=== PATIENT | female | born 1955 | race Caucasian/White ===

== ENCOUNTER 2017-06-04 14:49 | Emergency (ER) | payer OTHER ==
[~2017-06-04] VITALS: Ht 157.5 cm; Wt 68.5 kg
[2017-06-04 15:14] VITALS: BP 126/71
--- NOTE | 2017-06-04 15:21 | NUR ---
INFLUENZA SWAB COLLECTED, SENT TO LAB. EKG DONE IN TRIAGE, SHOWN TO DR. GARZA.
--- NOTE | 2017-06-04 17:12 | NUR ---
Patient to [facility]. RN evaluating patient.
--- NOTE | 2017-06-04 17:15 | NUR ---
61F BIB FAMILY C/O FLU S/S; COUGH, HEADAHCE, VOMITING, BODY ACHES X YESTERDAY; PT C/O MID-CHEST PAIN, RADIATES TO LEFT CHEST, ACHING, 8/10 AT THIS TIME; PT C/O VOMMITTING, BUT STATES NO DIARRHEA AT THIS TIME; ABDOMEN SOFT, NON-TENDER, ACTIVE BOWEL SOUNDS X 4 QUADRANTS; PT C/O NON-PRODUCTIVE COUGH, BL LUNG SOUNDS CLEAR, RR EVEN/UNLABORED, SKIN IS WARM/DRY/INTACT AT THIS TIME; PT RESTING IN [facility]4, POSITIONED FOR COMFORT; ER MD MADE AWARE OF STATUS. WILL CONTINUE TO MONITOR.
--- NOTE | 2017-06-04 17:40 | NUR ---
ER MD DR. GARZA EVALUATING PT AT OF.
[2017-06-04] MEDS ORDERED: KETOROLAC 30 MG/ML VIAL IM ONE (17:45)
[2017-06-04] MEDS ORDERED: ONDANSETRON 4 MG ODT PO ONE (17:45)
[2017-06-04] MEDS ORDERED: ACETAMIN/CODEINE 120/12MG-5ML 5 ML UDC PO ONE (17:45)
--- NOTE | 2017-06-04 18:19 | NUR ---
URINE COLLECTED AND LAB CALLED
[2017-06-04 19:19] VITALS: BP 126/71
--- NOTE | 2017-06-04 19:20 | NUR ---
Patient discharged with v/s stable. Written and verbal after care instructions given and explained. Patient verbalized understanding. Ambulatory with steady gait. All questions addressed prior to discharge. Advised to follow up with PMD.
== END 2017-06-04 18:30 | disposition home or self-care (01) ==
LOC: MED 14:49
DX: J20.9 Acute bronchitis, unspecified (principal)
CPT/HCPCS: 36415; 71045; 87804; 93005; 96372; 99285; J1885; S0119

== ENCOUNTER 2020-03-17 07:06 | Day surgery (SDC) | payer OTHER, SELFPAY ==
[~2020-03-17] VITALS: Ht 160 cm; Wt 67.1 kg
[2020-03-17] MEDS ORDERED: MIDAZOLAM 5 MG/5 ML VIAL ONE (08:19)
[2020-03-17] MEDS ORDERED: fentaNYL citrate 0.05 MG/ML VIAL ONE (08:19)
[2020-03-17] MEDS ORDERED: MIDAZOLAM 2 MG/2 ML VIAL ONE (08:19)
[2020-03-17] MEDS ORDERED: MIDAZOLAM 2 MG/2 ML VIAL IVP ONE (09:10)
== END 2020-03-17 09:10 | disposition home or self-care (01) ==
LOC: MMU 07:06 → MDS 07:06
PROVIDERS: ATTEND Internal Medicine Gastroenterology
DX: K21.9 Gastro-esophageal reflux disease without esophagitis (principal); E66.3 Overweight; K29.70 Gastritis, unspecified, without bleeding; Z20.828 Contact with and (suspected) exposure to other viral communicable diseases
CPT/HCPCS: 36415; 43239; 86677; J2250; U0003; J3010